=== PATIENT | male | born 1980 | race Hispanic/Latino ===

== ENCOUNTER 2017-06-30 16:11 | Emergency (ER) | payer OTHER ==
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
[2017-06-30 19:32] VITALS: BP 122/104; PULSE 72; RESP 16; O2SAT 98
== END 2017-06-30 19:33 | disposition home or self-care (01) ==
LOC: EDBD 16:11 → SED 16:11
DX: S92.255A Nondisplaced fracture of navicular [scaphoid] of left foot, initial encounter for closed fracture (principal); S16.1XXA Strain of muscle, fascia and tendon at neck level, initial encounter; V43.52XA Car driver injured in collision with other type car in traffic accident, initial encounter; Y93.89 Activity, other specified; Y99.8 Other external cause status; Y92.410 Unspecified street and highway as the place of occurrence of the external cause
CPT/HCPCS: 72125; 73610; 73630; 94799; 99284; G0390